=== PATIENT | female | born 1955 | race Caucasian/White ===

== ENCOUNTER 2018-06-16 05:55 | Day surgery (SDC) | payer MEDICARE, BC ==
[2018-06-16] MEDS ORDERED: Acetaminophen 500 MG Tab PO ONE (06:05)
[2018-06-16] MEDS ORDERED: Scopolamine 1.5 MG Transdermal Patch TOP ONE (06:05)
[2018-06-16] MEDS ORDERED: Lactated Ringers 1,000 ML IV SCH ×2 (06:30→09:15)
[2018-06-16] MEDS ORDERED: Povidone-Iodine 10% Soln 118.25 ML Bottle ONE (06:38)
[2018-06-16] MEDS ORDERED: Gentamicin 40 MG/ML 2 ML Vial ONE (06:38)
[2018-06-16] MEDS ORDERED: ceFAZolin 2 GM in Sodium Chloride 0.9% 50 ML IV ONE (07:15)
[2018-06-16] MEDS ORDERED: ceFAZolin 2 GM in Premix Bag 1 BAG IV ONE (07:15)
[2018-06-16] MEDS ORDERED: Midazolam 1 MG/ML 2 ML SDV ONE (07:19)
[2018-06-16] MEDS ORDERED: fentaNYL 100 MCG/2 ML SDV ONE ×2 (07:19→09:16)
[2018-06-16] MEDS ORDERED: Propofol 200 MG/20 ML SDV ONE ×4 (07:19→08:58)
[2018-06-16] MEDS ORDERED: Bupivacaine 0.75%/D5W 2 ML Amp ONE (07:30)
[2018-06-16] MEDS ORDERED: Ketamine 500 MG/5 ML MDV IV SCH (07:45)
[2018-06-16] MEDS ORDERED: Ropivacaine 49.25 ML, Ketorolac 30 MG, EPINEPHrine 0.5 MG, cloNIDine 80 MCG, Sodium Chl... INJECT ONE ×5 (07:45)
[2018-06-16] MEDS: Tranexamic Acid 970 MG in Sodium Chloride 0.9% 50 ML IV SCH ×2 (08:12→09:47)
[2018-06-16] MEDS ORDERED: Zolpidem 5 MG Tab PO PRN (09:11)
[2018-06-16] MEDS ORDERED: Magnesium Hydroxide 400 MG/5 ML Susp 30 ML Cup PO PRN (09:11)
[2018-06-16] MEDS ORDERED: Lactated Ringers 1,000 ML ONE (09:11)
[2018-06-16] MEDS ORDERED: Docusate Sodium 100 MG Cap PO PRN (09:11)
[2018-06-16] MEDS ORDERED: diphenhydrAMINE 50 MG/ML SDV IVPUSH PRN (09:11)
[2018-06-16] MEDS ORDERED: Bisacodyl 5 MG Tab PO PRN (09:11)
[2018-06-16] MEDS ORDERED: Sennosides 8.6 MG Tab PO PRN (09:11)
[2018-06-16] MEDS ORDERED: Naloxone 0.4 MG/ML SDV IVPUSH PRN (09:11)
[2018-06-16] MEDS ORDERED: Aluminum Hydroxide/Magnesium Hydroxide/Simethicone Susp 30 ML Cup PO PRN (09:11)
[2018-06-16] MEDS ORDERED: HYDROmorphone 1 MG/ML Syringe IVPUSH PRN (09:11)
[2018-06-16] MEDS: Acetaminophen 1,000 MG in Premix Bag 1 BAG IV SCH ×3 (11:14→23:36)
--- NOTE | 2018-06-16 13:32 | OR ---
DATE OF PROCEDURE: 06/16/2018 PREOPERATIVE DIAGNOSIS: Left knee primary osteoarthritis. POSTOPERATIVE DIAGNOSIS: Left knee primary osteoarthritis. PROCEDURE PERFORMED: Left knee medial compartment knee arthroplasty. ANESTHESIA: Spinal plus conscious sedation. FLUIDS: Lactated Ringer solution. ESTIMATED BLOOD LOSS: 25 mL. COMPLICATIONS: None. SPECIMEN: None. DISCHARGE DISPOSITION: Stable to PACU. INDICATIONS FOR THE PROCEDURE: The patient was seen preoperatively in the clinic. She had failed nonoperative treatment. Preoperative imaging confirmed the above-mentioned diagnosis. Risks and benefits of the procedure were explained to the patient. Informed consent was obtained. DESCRIPTION OF PROCEDURE: The patient was seen preoperatively by myself and the Anesthesia staff in the preoperative holding area, where the operative site was marked. She was brought to the operative suite by the Anesthesia staff, where spinal sedation plus conscious sedation was administered. Sterile Pedro catheter was placed. A well-padded tourniquet was placed on the left thigh. The right lower extremity was placed into a stirrup. The left lower extremity was placed into a U-thrasher with extensive foam padding. I did put foam padding over the area of the proximal fibula on the right where the stirrup is. The left lower extremity was then prepped and draped in a sterile manner. Time-out was called identifying the correct patient, the correct procedure, the correct site, and that antibiotics had been begun within the appropriate period of time. The left lower extremity was then exsanguinated. Tourniquet was raised to 300 mmHg and kept up until cementing at 38 minutes, at which time it was let down. A medial incision was made from the proximal pole of the patella, on its medial aspect, down to the medial side of the tibial tubercle. Bleeding during the case was controlled with Bovie electrocautery. I then performed medial parapatellar arthrotomy. I removed the infrapatellar fat pad, the anterior portion of the medial meniscus, and then exposed the medial proximal tibia using Bovie electrocautery. Gelpis were used for retraction. I then used an extramedullary guide for the tibia with a 2- mm slot. I then pinned this in place and then made my vertical cut in line just medial to the medial tibial spine in line with the anterior superior iliac spine. I then made my horizontal cut. I then removed the guide and then, using an osteotome, removed my proximal tibia portion en bloc which measured a 3. I then put the knee in extension, used my distal cutting guide, and pinned it in place. I made sure that this was in proper alignment with the second metatarsal. I then made my distal femoral cut. I then removed that guide and then, after having marked the mid-portion of my 7 mm plastic trial at the anterior and posterior portion of the medial condyle, I put on my distal femoral cutting guide, which showed it to be in good alignment. This was a 3. I pinned this in place. I drilled my 2 holes and then made my 3 distal cuts. I then cleaned up these cuts a little bit with an osteotome and a saw. I then inserted my femoral trial and then tibial trial and then inserted my 7 tibial spacer. This was just a little bit tight, so I recut my tibia just 1 more millimeter using the guide and then reapplied my trial components. This provided good range of motion with adequate stability. After this had been performed, I then removed all of my components, copiously irrigated with saline and then cemented my components in place with a [address] in approximately 30 degrees flexion. I then let down the tourniquet. I let the cement harden. After the cement had hardened, I then removed my Lollipop and then took quite a bit of time to make sure that we got all of our extra cement out of the joint and then copiously irrigated with saline. I then inserted a 7 polyethylene tibial fixed-bearing implant. This provided excellent stability throughout range of motion. We then copiously irrigated with saline again. I then applied my periarticular injection and closed my arthrotomy with two #5 Ethibond and a #1 STRATAFIX. We then irrigated again with Betadine-infused irrigation and then closed with #2 STRATAFIX, followed by skin alba, followed by Betadine-soaked Adaptic, followed by a sterile dressing and an Wade wrap. The patient was then transferred to our hospital bed and taken to the PACU in a stable condition. Hector Hanley DO /[id number]
[2018-06-16] MEDS: Ketorolac 30 MG/ML SDV IVPUSH PRN (14:55)
--- NOTE | 2018-06-16 14:59 | CR ---
Portable left knee There are postoperative findings consistent with a medial compartment hemiarthroplasty. The prostheti c components appear well aligned and seated.
[2018-06-16] MEDS: ceFAZolin 2 GM in Sodium Chloride 0.9% 50 ML IV SCH ×2 (16:47→22:03)
[2018-06-16] MEDS: Ondansetron 4 MG/2 ML SDV IVPUSH PRN ×2 (17:17→23:51)
[2018-06-16] MEDS: traMADol 50 MG Tab PO PRN (17:44)
[2018-06-17] MEDS: ceFAZolin 2 GM in Sodium Chloride 0.9% 50 ML IV SCH (06:14)
[2018-06-17] MEDS: Acetaminophen 1,000 MG in Premix Bag 1 BAG IV SCH (07:01)
[2018-06-17] MEDS ORDERED: Pantoprazole 40 MG Tab.CR PO SCH (07:30)
[2018-06-17] MEDS: traMADol 50 MG Tab PO PRN (07:36)
[2018-06-17] MEDS: Ondansetron 4 MG/2 ML SDV IVPUSH PRN ×2 (07:36→12:02)
[2018-06-17] MEDS: Ketorolac 30 MG/ML SDV IVPUSH PRN (07:57)
--- NOTE | 2018-06-17 08:58 | PCM.DCSUM1 ---
Discharge Summary - Hospital Course Brief History: 63 yo female left pka Diagnosis: Stroke: No - Discharge Data Discharge Date: 06/17/18 Discharge Disposition: Home, Self-Care 01 Condition: Good - Patient Summary/Data Consults: Consultations 06/16/18 09:11 OT Evaluation and Treatment [CONS] Routine Please Evaluate and Treat. OT Reason for Consult: Strengthening This query below is only for informational purposes and is not editable. PT Evaluation and Treatment [CONS] Routine Please Evaluate and Treat. PT Reason for Consult: Strengthening This query below is only for informational purposes and is not editable. Respiratory Care Assess and Treatment [CONS] Routine Comment: Physician Instructions: Post-op Pneumonia Prevention - Patient Instructions Diet: Regular Diet as Tolerated Activity: Apply Ice, As Tolerated, No Strenuous Activities Driving: Do Not Drive Showering/Bathing: May Shower Wound/Incision Care: Keep Operative Site/Wound Site Clean and Dry Notify Provider of: Fever, Increased Pain, Swelling and Redness, Drainage, Nausea and/or Vomiting - Discharge Plan *PRESCRIPTION DRUG MONITORING PROGRAM REVIEWED*: Not Applicable *COPY OF PRESCRIPTION DRUG MONITORING REPORT IN PATIENT DEON: Not Applicable Prescriptions/Med Rec: Aspirin [Ecotrin] 325 mg PO DAILY #30 tab.ec traMADol [Ultram] 100 mg PO Q6H PRN #120 tablet PRN Reason: Pain Home Medications: Home Meds Esomeprazole [NexIUM] 40 mg PO DAILY 01/06/18 [History] Pravastatin [Pravachol] 40 mg PO DAILY 01/06/18 [History] hydroCHLOROthiazide [Hydrochlorothiazide] 12.5 mg PO DAILY 01/06/18 [History] Calcium Carbonate/Vitamin D3 [Calcium 500 + Vit D 400] 1 each PO DAILY 06/14/18 [History] Gluc 2KCl/Chondr/Yumiko Hy/Hy Ac [Glucosamine & Chondroitin Cap] 1 each PO DAILY 06/14/18 [History] Losartan [Cozaar] 50 mg PO DAILY 06/16/18 [History] Aspirin [Ecotrin] 325 mg PO DAILY #30 tab.ec 06/17/18 [Rx] traMADol [Ultram] 100 mg PO Q6H PRN #120 tablet 06/17/18 [Rx] Patient Handouts: Venous Thromboembolism Prevention Referrals: Hector Hanley DO [Physician] - 07/08/18 10:15 am - General Info Functional Status: Reports: Pain Controlled, Tolerating Diet, Ambulating - Review of Systems General: Reports: No Symptoms HEENT: Reports: No Symptoms Pulmonary: Reports: No Symptoms Cardiovascular: Reports: No Symptoms Gastrointestinal: Reports: No Symptoms Genitourinary: Reports: No Symptoms Musculoskeletal: Reports: Leg Pain, Joint Pain Skin: Reports: No Symptoms Neurological: Reports: No Symptoms Psychiatric: Reports: No Symptoms - Patient Data Vitals - Most Recent: Last Vital Signs Temp 97.2 F 06/17/18 07:41 Pulse 65 06/17/18 07:41 Resp 16 06/17/18 07:41 BP 117/63 06/17/18 08:22 Pulse Ox 94 L 06/17/18 07:41 Weight - Most Recent: 210 lb 4.8 oz I&O - Last 24 hours: Intake & Output 06/16/18 06/17/18 06/17/18 22:59 06:59 14:59 Intake Total 3200 490 600 Output Total 1200 350 Balance 2000 140 600 Lab Results - Last 24 hrs: Laboratory Results - last 24 hr 06/17/18 06/17/18 Range/Units 04:45 04:45 WBC 8.6 (4.5-11.0) K/uL RBC 3.42 (3.30-5.50) M/uL Hgb 10.5 L D (12.0-15.0) g/dL Hct 31.6 L (36.0-48.0) % MCV 92 (80-98) fL MCH 31 (27-31) pg MCHC 33 (32-36) % Plt Count 221 (150-400) K/uL Neut % (Auto) 74 H (36-66) % Lymph % (Auto) 18 L (24-44) % Kane % (Auto) 6 (2-6) % Eos % (Auto) 2 (2-4) % Baso % (Auto) 0 (0-1) % Sodium 133 L (140-148) mmol/L Potassium 3.3 L (3.6-5.2) mmol/L Chloride 97 L (100-108) mmol/L Carbon Dioxide 27 (21-32) mmol/L Anion Gap 12.3 (5.0-14.0) mmol/L BUN 18 (7-18) mg/dL Creatinine 0.9 (0.6-1.0) mg/dL Est Cr Clr Drug Dosing 51.55 mL/min Estimated GFR (MDRD) > 60 (>60) Glucose 128 H (74-106) mg/dL Calcium 8.3 L (8.5-10.1) mg/dL Total Bilirubin 0.4 D (0.2-1.0) mg/dL AST 20 (15-37) U/L ALT 22 (12-78) U/L Alkaline Phosphatase 68 (46-116) U/L Total Protein 6.0 L (6.4-8.2) g/dL Albumin 3.0 L (3.4-5.0) g/dL Globulin 3.0 (2.3-3.5) g/dL Albumin/Globulin Ratio 1.0 L (1.2-2.2) Med Orders - Current: Current Medications Al Hydroxide/Mg Hydroxide (Mag-Al Plus) 30 ml PO Q4H PRN PRN Reason: Constipation Aspirin (Ecotrin) 325 mg PO DAILY [facility] Last Admin: 06/17/18 08:23 Dose: 325 mg Bisacodyl (Dulcolax) 10 mg PO DAILY PRN PRN Reason: Constipation Diphenhydramine HCl (Benadryl) 25 mg IVPUSH Q4H PRN PRN Reason: Itching Docusate Sodium (Colace) 100 mg PO BID PRN PRN Reason: Constipation Hydrochlorothiazide (Hydrochlorothiazide) 12.5 mg PO DAILY [facility] Last Admin: 06/17/18 08:22 Dose: 12.5 mg Hydromorphone HCl (Dilaudid) 1 mg IVPUSH Q2H PRN PRN Reason: Pain Lactated Ringer's (Ringers, Lactated) 1,000 mls @ 100 mls/hr IV ASDIRECTED [facility] Last Admin: 06/16/18 09:45 Dose: 100 mls/hr Losartan Potassium (Cozaar) 50 mg PO DAILY [facility] Last Admin: 06/17/18 08:22 Dose: 50 mg Magnesium Hydroxide (Milk Of Magnesia) 30 ml PO BID PRN PRN Reason: Constipation Naloxone HCl (Narcan) 0.1 mg IVPUSH ONETIME PRN PRN Reason: Oversedation Ondansetron HCl (Zofran) 8 mg IVPUSH Q4H PRN PRN Reason: Nausea/Vomiting Last Admin: 06/17/18 07:36 Dose: 8 mg Pantoprazole Sodium (Protonix) 40 mg PO DAILY@0730 [facility] Last Admin: 06/17/18 07:44 Dose: 40 mg Pravastatin Sodium (Pravachol) 40 mg PO DAILY [facility] Last Admin: 06/17/18 08:23 Dose: 40 mg Senna (Senna) 8.6 mg PO BID PRN PRN Reason: Constipation Sodium Chloride (Saline Flush) 10 ml FLUSH DAILY [facility] Last Admin: 06/17/18 08:23 Dose: 10 ml Tramadol HCl (Ultram) 100 mg PO Q6H PRN PRN Reason: Pain Last Admin: 06/17/18 07:36 Dose: 100 mg Zolpidem Tartrate (Ambien) 5 mg PO BEDTIME PRN PRN Reason: Sleep Discontinued Medications Acetaminophen (Tylenol Extra Strength) 1,000 mg PO ONETIME ONE Stop: 06/16/18 06:06 Last Admin: 06/16/18 06:18 Dose: 1,000 mg Bupivacaine HCl/Dextrose (Marcaine 0.75% Spinal) Confirm Administered Dose 2 ml .ROUTE .STK-MED ONE Stop: 06/16/18 07:31 Ropivacaine 49.25 ml/Ketorolac Tromethamine 30 mg/Epinephrine HCl 0.5 mg/ Clonidine HCl 80 mcg/ Sodium Chloride 48.45 ml 0 ml INJECT ONETIME ONE Stop: 06/16/18 07:46 Last Admin: 06/16/18 08:13 Dose: 100 ml Fentanyl (Sublimaze) Confirm Administered Dose 100 mcg .ROUTE .STK-MED ONE Stop: 06/16/18 07:20 Fentanyl (Sublimaze) Confirm Administered Dose 100 mcg .ROUTE .STK-MED ONE Stop: 06/16/18 09:17 Gentamicin Sulfate (Gentamicin) Confirm Administered Dose 240 mg .ROUTE .STK- MED ONE Stop: 06/16/18 06:39 Last Admin: 06/16/18 08:26 Dose: 240 mg Cefazolin Sodium 2 gm/ Sodium (Chloride) 50 mls @ 100 mls/hr IV ONETIME ONE Stop: 06/16/18 07:44 Last Admin: 06/16/18 07:20 Dose: 100 mls/hr Tranexamic Acid 970 mg/ Sodium (Chloride) 59.7 mls @ 238.8 mls/hr IV Q3H [facility] Stop: 06/16/18 10:59 Last Admin: 06/16/18 09:47 Dose: 238.8 mls/hr Lactated Ringer's (Ringers, Lactated) 1,000 mls @ 100 mls/hr IV ASDIRECTED [facility] Last Admin: 06/16/18 06:41 Dose: 100 mls/hr Lactated Ringer's (Ringers, Lactated) Confirm Administered Dose 1,000 mls @ as directed .ROUTE .STK-MED ONE Stop: 06/16/18 09:12 Acetaminophen 1,000 mg/ Premix 100 mls @ 400 mls/hr IV Q6H [facility] Stop: 06/17/18 06:14 Last Admin: 06/17/18 07:01 Dose: 400 mls/hr Cefazolin Sodium 2 gm/ Sodium (Chloride) 50 mls @ 100 mls/hr IV Q8H [facility] Stop: 06/17/18 06:59 Last Admin: 06/17/18 06:14 Dose: 100 mls/hr Ketamine HCl (Ketalar) 26 mg IV ASDIRECTED [facility] Ketorolac Tromethamine (Toradol) 30 mg IVPUSH Q8H PRN PRN Reason: Pain Last Admin: 06/17/18 07:57 Dose: 30 mg Midazolam HCl (Versed 1 Mg/Ml) Confirm Administered Dose 2 mg .ROUTE .STK-MED ONE Stop: 06/16/18 07:20 Povidone Iodine (Betadine 10% Soln) Confirm Administered Dose 1 ml .ROUTE .STK- MED ONE Stop: 06/16/18 06:39 Last Admin: 06/16/18 08:27 Dose: 30 ml Propofol (Diprivan 20 Ml) Confirm Administered Dose 200 mg .ROUTE .STK-MED ONE Stop: 06/16/18 07:20 Propofol (Diprivan 20 Ml) Confirm Administered Dose 200 mg .ROUTE .STK-MED ONE Stop: 06/16/18 08:06 Propofol (Diprivan 20 Ml) Confirm Administered Dose 200 mg .ROUTE .STK-MED ONE Stop: 06/16/18 08:38 Propofol (Diprivan 20 Ml) Confirm Administered Dose 200 mg .ROUTE .STK-MED ONE Stop: 06/16/18 08:59 Scopolamine (Transderm-Scop) 1.5 mg TOP ONETIME ONE Stop: 06/16/18 06:06 Last Admin: 06/16/18 06:18 Dose: 1.5 mg - Exam General: Reports: Alert, Oriented HEENT: Reports: Pupils Equal, Mucous Membr. Moist/Burgin Neck: Reports: Supple, Trachea Midline Lungs: Reports: Clear to Auscultation, Normal Respiratory Effort Cardiovascular: Reports: Regular Rate, Regular Rhythm Extremities: Leg Pain, Limited Range of Motion Skin: Reports: Warm, Dry, Intact Wound/Incisions: Reports: Healing Well, Dressing Dry and Intact Neurological: Reports: No New Focal Deficit Psy/Mental Status: Reports: Alert, Normal Affect, Normal Mood
[2018-06-17] MEDS ORDERED: Aspirin 325 MG Tab.EC PO SCH (09:00)
[2018-06-17] MEDS ORDERED: Losartan 50 MG Tab PO SCH (09:00)
[2018-06-17] MEDS ORDERED: Pravastatin 20 MG Tab PO SCH (09:00)
[2018-06-17] MEDS ORDERED: Sodium Chloride 0.9% 10 ML Syringe FLUSH SCH (09:00)
[2018-06-17] MEDS ORDERED: Hydrochlorothiazide 12.5 MG Cap PO SCH (09:00)
[2018-06-17] MEDS ORDERED: Potassium Chloride 20 MEQ Tab.ER PO ONE (10:00)
[2018-06-17] MEDS ORDERED: diphenhydrAMINE 25 MG Cap PO PRN (12:39)
== END 2018-06-17 15:51 | disposition home or self-care (01) ==
LOC: JP.SDS 05:55 → JP.MS 09:11 → JP.SDS 06-17 15:51
PROVIDERS: ATTEND Orthopaedic Surgery
DX: M17.12 Unilateral primary osteoarthritis, left knee (principal); K21.9 Gastro-esophageal reflux disease without esophagitis; E66.9 Obesity, unspecified; Z79.82 Long term (current) use of aspirin; Z79.899 Other long term (current) drug therapy; Z88.2 Allergy status to sulfonamides; Z88.5 Allergy status to narcotic agent; Z88.8 Allergy status to other drugs, medicaments and biological substances
CPT/HCPCS: 27447; 36415; 73560; 80053; 85025; 86850; 86900; 86901; 94762; 97110; 97161; 97165; 97530; 97535; A9270; C1713; J0131; J0171; J0690; J0735; J1580; J1885; J2250; J2405; J2704; J2795; J3010; J7050; J7120; J1200